=== PATIENT | female | born 1980 | race American Indian/Alaskan Native ===

== ENCOUNTER 2018-09-05 12:29 | Emergency (ER) | payer OTHER ==
[2018-09-05] MEDS ORDERED: BENADRYL PO ONE (13:39)
[2018-09-05] MEDS ORDERED: DECADRON IM ONE (13:39)
[2018-09-05] MEDS ORDERED: REGLAN PO ONE (13:39)
--- NOTE | 2018-09-05 14:22 | Emergency Department Report ---
ED Allergic Reaction HPI - General Chief complaint: Headache Stated complaint: HEADACHE/PAIN Time Seen by Provider: 09/05/18 13:09 Source: patient Mode of arrival: Ambulatory Limitations: No Limitations - History of Present Illness Initial Comments: Patient is a 38-year-old female who presents to emergency room with complaints of an allergic reaction for the last couple of days. She states she has a rash diffusely for the last couple of days. She states she noticed the hives after taking Advil head and cold for a headache. she states the rash itches. She states she has had a left frontal headache for a week and took Advil head and cold one time and began to have the rash afterwards. Patient does not report any shortness of breath, wheezing, difficulty in breathing, throat swelling. she has not taken anything else for the headache due to being afraid to have a reaction. she denies any vision changes, numbness, weakness. She states she has a past medical history of rosacea and states that her rosacea feels like it has become long goods drier and more itchy. pt states she takes singulair and Zyrtec daily for allergies but feels like it has not helped with her itchiness. LNMP August 21. Past medical history of DM and carpal tunnel. - Related Data Previous Rx's Medication Instructions Recorded Last Taken Type Prednisone [predniSONE 10 mg 10 mg PO .TAPER #1 tab.ds.pk 09/05/18 Unknown Rx (6-Day Pack, 21 Tabs)] hydrOXYzine PAMOATE [Vistaril] 25 mg PO Q6HR PRN #20 capsule 09/05/18 Unknown Rx Allergies Allergy/AdvReac Type Severity Reaction Status Date / Time No Known Allergies Allergy Unverified 09/05/18 12:30 ED Review of Systems ROS: Stated complaint: HEADACHE/PAIN Other details as noted in HPI Comment: All other systems reviewed and negative ED Past Medical Hx - Past Medical History Previous Medical History?: Yes Hx Diabetes: Yes Hx Asthma: Yes (Bronchoasthma) - Surgical History Hx Cholecystectomy: Yes Additional Surgical History: - Social History Smoking Status: Current Every Day Smoker Substance Use Type: None - Medications Home Medications: Home Medications Medication Instructions Recorded Confirmed Last Taken Type Prednisone [predniSONE 10 mg 10 mg PO .TAPER #1 tab.ds.pk 09/05/18 Unknown Rx (6-Day Pack, 21 Tabs)] hydrOXYzine PAMOATE [Vistaril] 25 mg PO Q6HR PRN #20 capsule 09/05/18 Unknown Rx ED Physical Exam - General Limitations: No Limitations General appearance: alert, in no apparent distress - Head Head exam: Present: atraumatic, normocephalic - Eye Eye exam: Present: normal appearance, PERRL, EOMI. Absent: periorbital swelling, periorbital tenderness - ENT ENT exam: Present: normal orophraynx, mucous membranes moist, other (pale boggy turbinates, no sinus TTP bilaterally ) - Respiratory Respiratory exam: Present: normal lung sounds bilaterally. Absent: respiratory distress, wheezes, rales, rhonchi, stridor, chest wall tenderness, accessory muscle use, decreased breath sounds, prolonged expiratory - Cardiovascular Cardiovascular Exam: Present: regular rate, normal rhythm, normal heart sounds. Absent: systolic murmur, diastolic murmur, rubs, gallop - Neurological Exam Neurological exam: Present: alert, oriented X3, CN II-XII intact, normal gait. Absent: motor sensory deficit - Psychiatric Psychiatric exam: Present: normal affect, normal mood - Skin Skin exam: Present: warm, dry, urticaria (chest, back, bilateral UE) ED Medical Decision Making - Medical Decision Making Patient is a 38-year-old female who presents to emergency room with complaints of an allergic reaction for the last couple of days. She states she has a rash diffusely for the last couple of days. She states she noticed the hives after taking Advil head and cold for a headache. she states the rash itches. She states she has had a left frontal headache for a week and took Advil head and cold one time and began to have the rash afterwards. Patient does not report any shortness of breath, wheezing, difficulty in breathing, throat swelling. she has not taken anything else for the headache due to being afraid to have a reaction. she denies any vision changes, numbness, weakness. She states she has a past medical history of rosacea and states that her rosacea feels like it has become long goods drier and more itchy. pt states she takes singulair and Zyrtec daily for allergies but feels like it has not helped with her itchiness. LNMP August 21. Past medical history of DM and carpal tunnel. on exam: urticaria present to the chest, back, and bilateral UE. pt given medications while in the ED for rash and COMER and symptoms improved. pt given prescriptions for vistaril and prednisone. advised to please take medication as prescribed. steroids may increase your blood sugar please keep a close eye on your blood sugar and if becomes too high then stop the steroids. follow up with primary care doctor in the next 2-3 days. return to the emergency room for any new or worsening symptoms. - Differential Diagnosis allergic rxn, contact derm, irritant derm, seasonal allergies, COMER Critical care attestation.: If time is entered above; I have spent that time in minutes in the direct care of this critically ill patient, excluding procedure time. ED Disposition Clinical Impression: Allergic reaction Qualifiers: Encounter type: initial encounter Qualified Code(s): T78.40XA - Allergy, unspecified, initial encounter Headache Qualifiers: Headache type: unspecified Headache chronicity pattern: acute headache Intractability: not intractable Qualified Code(s): R51 - Headache Disposition: TO HOME OR SELFCARE Is pt being admited?: No Does the pt Need Aspirin: No Condition: Stable Instructions: Urticaria (ED), Acute Headache (ED), Allergies (ED) Additional Instructions: please take medication as prescribed. steroids may increase your blood sugar please keep a close eye on your blood sugar and if becomes too high then stop the steroids. follow up with primary care doctor in the next 2-3 days. return to the emergency room for any new or worsening symptoms. Prescriptions: Prednisone [predniSONE 10 mg (6-Day Pack, 21 Tabs)] 10 mg PO .TAPER #1 tab.ds.pk hydrOXYzine PAMOATE [Vistaril] 25 mg PO Q6HR PRN #20 capsule PRN Reason: Itching Referrals: JOHANNA GARNER MD [Primary Care Provider] - 2-3 Days Time of Disposition: 14:38 Print Language: TURKISH
== END 2018-09-05 14:48 | disposition home or self-care (01) ==
LOC: ED 12:29
DX: T78.40XA Allergy, unspecified, initial encounter (principal); R51 Headache; E11.9 Type 2 diabetes mellitus without complications; J45.909 Unspecified asthma, uncomplicated; Z90.49 Acquired absence of other specified parts of digestive tract; F17.200 Nicotine dependence, unspecified, uncomplicated
CPT/HCPCS: 96372; 99282; J1100

== ENCOUNTER 2018-11-09 07:08 | Emergency (ER) | payer BC, OTHER ==
[2018-11-09 07:19] VITALS: BP 153/84
[2018-11-09] MEDS ORDERED: HYDROcodone/ACETAMINOPHEN 5-325 MG TAB PO STA (07:47)
--- NOTE | 2018-11-09 08:57 | Emergency Department Report ---
Upper Extremity - HPI Chief Complaint: Extremity Problem,Nontraumatic Stated Complaint: HANDS/LEGS SWELLING Time Seen by Provider: 11/09/18 07:42 Upper Extremity: Left Wrist, Right Wrist Occurred When: >5 Days Severity: moderate Symptoms: Yes Pain with Movement, Yes Numbness, No Deformity, No Limited Range of Movement, No Weakness, No Swelling, No Bruising/Ecchymosis (38-year-old morbidly obese -[place] female presents most department complaining of continuation of a long-standing issue with her wrist.), No Laceration or Abrasion Other History: She reports having issues with this for several several months and has been giving burning sensation to the fingertips cramps and pain with range of motion. She has been advised on the O was racing,) but states she does not with him because it. She feels it makes her symptoms worsen. She has not yet followed up with with orthopedic understands she is going to need surgery for management of this issue. She is to follow-up.*Also been having some a long-standing issue of bilateral lower extremity swelling to her feet and ankles is now beginning to progress to the lower leg, but not associated with calf pain. The swelling is present as bilaterally as off and on primarily when she stands for prolonged periods of time. She is not tried any management for this issue, but seeks treatment while in the emergency department today as well. ED Review of Systems ROS: Stated complaint: HANDS/LEGS SWELLING Other details as noted in HPI Comment: All other systems reviewed and negative ED Past Medical Hx - Past Medical History Hx Diabetes: Yes Hx Asthma: Yes (Bronchoasthma) - Surgical History Hx Cholecystectomy: Yes Additional Surgical History: - Social History Smoking Status: Current Every Day Smoker - Medications Home Medications: Home Medications Medication Instructions Recorded Confirmed Last Taken Type Prednisone [predniSONE 10 mg 10 mg PO .TAPER #1 tab.ds.pk 09/05/18 Unknown Rx (6-Day Pack, 21 Tabs)] hydrOXYzine PAMOATE [Vistaril] 25 mg PO Q6HR PRN #20 capsule 09/05/18 Unknown Rx predniSONE [Deltasone] 50 mg PO QDAY #5 tab 11/09/18 Unknown Rx traMADol [Ultram] 50 mg PO Q6HR PRN #20 tablet 11/09/18 Unknown Rx Upper Extremity Exam - Exam General: Vital signs noted. No distress. Alert and acting appropriately. Head and Torso: No HEENT Abnormality, No Neck Tenderness, No Chest/Lungs Abnormality, No Abdominal Tenderness, No Back Tenderness Shoulder Exam: Yes Normal Range of Motion in Shoulder, No Shoulder Tenderness, No Clavicle Tenderness, No Shoulder Deformity, No AC Joint Tenderness Arm Exam: No Arm/Humerus Tenderness, No Arm Deformity Elbow: No Elbow Tenderness, No Normal Range of Motion in Elbow, No Elbow Deformity Forearm: No Forearm Tenderness, No Forearm Deformity, No Pain with Pronation, No Pain with Supination Wrist: Yes Wrist Tenderness (pain with compression BAND. There is negative Marry l's sign and Phalen's test. Capillary refill is brisk. No snuffbox tenderness. No obvious sign. Negative Mike maneuver), Yes Normal ROM in Wrist, No Wrist Deformity, No Snuffbox Tenderness, No Pain with Axial Thumb Compression Hand: Yes Normal ROM in Digit(s), No Hand Tenderness, No Hand Deformity, No Digit Tenderness, No Digit(s) Deformity, No Tendon Dysfunction CMS Exam: Yes Normal Distal Pulses, Yes Normal Capillary Refill, Yes Normal Distal Sensation, No Broken Skin Front/Back of Body, Lg (Color): 1 - No pitting edema noted. No cords sign. Capillary refills are brisk. No Homans sign. Pulses 2+ to the dorsalis pedis and posterior tibialis. No broken skin. No venous engorgement noted. No popliteal masses. Full range of motion of the knees. Full range of motion of the ankles ED Course Vital Signs 11/09/18 07:16 Temperature 97.7 F Pulse Rate 94 H Respiratory 18 Rate Blood Pressure 153/84 [Right] O2 Sat by Pulse 97 Oximetry Critical care attestation.: If time is entered above; I have spent that time in minutes in the direct care of this critically ill patient, excluding procedure time. ED Disposition Clinical Impression: Carpal tunnel syndrome on both sides, Swelling of lower extremity Disposition: TO HOME OR SELFCARE Is pt being admited?: No Does the pt Need Aspirin: No Condition: Stable Instructions: Carpal Tunnel Syndrome (ED), Leg Edema (ED) Additional Instructions: He is recommended that she wear compression stockings when standing for prolonged period time and utilize low-impact aerobics to improve. The muscle tone and you venous return. As for your wrist. It is recommended to wear the cockup wrist braces as we discussed Prescriptions: predniSONE [Deltasone] 50 mg PO QDAY #5 tab traMADol [Ultram] 50 mg PO Q6HR PRN #20 tablet PRN Reason: Pain Referrals: SAVANNA ARANGO [Other] - 3-5 Days ANGÉLICA TERRELL MD [Staff Physician] - 3-5 Days
== END 2018-11-09 09:22 | disposition home or self-care (01) ==
LOC: ED 07:08
DX: G56.03 Carpal tunnel syndrome, bilateral upper limbs (principal); J45.909 Unspecified asthma, uncomplicated; F17.200 Nicotine dependence, unspecified, uncomplicated
CPT/HCPCS: 99282

== ENCOUNTER 2018-12-12 15:21 | Emergency (ER) | payer BC, MEDICARE ==
--- NOTE | 2018-12-12 15:39 | Emergency Department Report ---
Blank Doc - Documentation Documentation: 38-year-old female that presents with generalized body aches and bilateral upper and lower extremities swelling. This initial assessment/diagnostic orders/clinical plan/treatment(s) is/are subject to change based on patient's health status, clinical progression and re-assessment by fellow clinical providers in the ED. Further treatment and workup at subsequent clinical providers discretion. Patient/guardians urged not to elope from the ED as their condition may be serious if not clinically assessed and managed. Initial orders include: 1- Patient sent to [facility] for further evaluation and treatment 2- labs 3- UA
[2018-12-12 16:22] LABS: Basophils # (Auto) 0.2 K/mm3 (0.0-0.1); Basophils % (Auto) 2.3 % (0.0-1.8); Eosinophils # (Auto) 0.1 K/mm3 (0.0-0.4); Eosinophils % (Auto) 0.9 % (0.0-4.3); Hematocrit 35.9 % (30.3-42.9); Hemoglobin 11.8 gm/dl (10.1-14.3); Lymphocytes # (Auto) 2.5 K/mm3 (1.2-5.4); Lymphocytes % (Auto) 26.3 % (13.4-35.0); Mean Corpuscular HGB Conc 33 % (30-34); Mean Corpuscular Volume 82 fl (79-97); Monocytes # (Auto) 0.7 K/mm3 (0.0-0.8); Monocytes % (Auto) 7.6 % (0.0-7.3); Platelet Count 490 K/mm3 (140-440)
[2018-12-12 16:57] LABS: Alanine Aminotransferase 6 units/L (7-56); Albumin 3.3 g/dL (3.9-5); BUN/Creatinine Ratio 20; Blood Urea Nitrogen 12 mg/dL (7-17); Calcium 8.7 mg/dL (8.4-10.2); Hemolysis Index 20
[2018-12-12 20:04] VITALS: BP 135/84
[2018-12-12] MEDS ORDERED: KETOROLAC 30 MG/1 ML INJ IM ONE (20:12)
--- NOTE | 2018-12-12 20:13 | Emergency Department Report ---
ED General Adult HPI - General Chief complaint: Pain General Stated complaint: SWOLLEN HANDS/FEET PAIN Time Seen by Provider: 12/12/18 15:38 Source: patient, RN notes reviewed, old records reviewed Mode of arrival: Ambulatory Limitations: No Limitations - History of Present Illness Initial comments: During the entire history and physical examination, I am collar sewer and escorted by nurse Leela Shaffer This is a 38-year-old female, morbidly obese, presenting to the ER with acute on chronic bilateral wrist pain, elbow pain, shoulder pain, paracervical pain, bilateral hip pain, knee pain and ankle pain. Patient reports that she sits down at work, and is typically in front of the computer. The pain is intermittent throbbing. She feels like her wrists are swollen. She makes no complaint of headache, neck pain, chest pain, abdominal pain or shortness of breath. She reports that she is not . She reports no repetitive trauma. She reports no heavy lifting. She reports that the symptoms that she is experiencing today are similar to prior symptoms that she was evaluated for on 11/09/2018 at this hospital. Her symptoms were improved with rest and ketorolac in the emergency room. -: Gradual Location: back, left, right, upper extremity, lower extremity Severity scale (0 -10): 0 Quality: aching Consistency: intermittent Improves with: medication, rest Worsens with: movement - Related Data Allergies Allergy/AdvReac Type Severity Reaction Status Date / Time No Known Allergies Allergy Verified 12/12/18 15:38 ED Review of Systems ROS: Stated complaint: SWOLLEN HANDS/FEET PAIN Other details as noted in HPI Constitutional: denies: fever Eyes: denies: eye discharge ENT: denies: congestion Respiratory: denies: wheezing Cardiovascular: denies: syncope Gastrointestinal: denies: abdominal pain Genitourinary: denies: dysuria Musculoskeletal: back pain, joint swelling, arthralgia, myalgia Skin: denies: lesions Neurological: denies: weakness, numbness, paresthesias, confusion, abnormal gait Hematological/Lymphatic: denies: easy bleeding ED Past Medical Hx - Past Medical History Hx Diabetes: Yes Hx Asthma: Yes (Bronchoasthma) - Surgical History Hx Cholecystectomy: Yes Additional Surgical History: - Social History Smoking Status: Current Every Day Smoker ED Physical Exam - General Limitations: No Limitations, Other (during the history and physical examination, collar sewer by nurse Leela Shaffer) General appearance: alert, in no apparent distress - Head Head exam: Present: atraumatic, normocephalic - Eye Eye exam: Present: normal appearance, EOMI. Absent: nystagmus - ENT ENT exam: Present: normal exam, normal orophraynx, mucous membranes moist, normal external ear exam - Neck Neck exam: Present: normal inspection, full ROM, other (is reproducible paracervical neck pain. There is no midline spinal tenderness. There is no adenopathy. There is no carotid bruit. There is no expansile hematoma.). Absent: tenderness, meningismus - Respiratory Respiratory exam: Present: normal lung sounds bilaterally. Absent: respiratory distress, wheezes, rales, rhonchi, stridor - Cardiovascular Cardiovascular Exam: Present: regular rate, normal rhythm, normal heart sounds. Absent: bradycardia, tachycardia, irregular rhythm, systolic murmur, diastolic murmur, rubs, gallop - GI/Abdominal GI/Abdominal exam: Present: soft. Absent: distended, tenderness, guarding, rebound, rigid, pulsatile mass - Extremities Exam Extremities exam: Present: normal inspection, full ROM, other (2+ pulses noted in the bilateral upper, lower extremities. There is no long bone tenderness. Musculoskeletal compartments are soft. The pelvis is stable.). Absent: pedal edema, calf tenderness - Back Exam Back exam: Present: normal inspection, paraspinal tenderness. Absent: tenderness, CVA tenderness (R), CVA tenderness (L), vertebral tenderness - Neurological Exam Neurological exam: Present: alert, oriented X3, normal gait, other (there is no facial droop. The tongue is midline. Extraocular movements are intact bilat erally. Patient speaking in full complete sentences. Shoulder shrug is intact bilaterally. Hearing is grossly intact bilaterally. Visual acuity intact to finger counting and color perception at a close distance. 5/5 strength 4 extremities. Sensation intact to light touch in 4 extremities.). Absent: motor sensory deficit - Psychiatric Psychiatric exam: Present: normal affect, normal mood - Skin Skin exam: Present: warm, dry, intact, normal color. Absent: rash ED Course Vital Signs 12/12/18 12/12/18 12/12/18 15:34 17:16 17:19 Temperature 98.5 F Pulse Rate 107 H 101 H 99 H Respiratory 16 18 18 Rate Blood Pressure 156/97 Blood Pressure 171/100 [Left] O2 Sat by Pulse 100 98 98 Oximetry 12/12/18 12/12/18 12/12/18 17:30 17:45 18:00 Temperature Pulse Rate 98 H 98 H 94 H Respiratory 23 20 18 Rate Blood Pressure 171/100 131/88 131/88 Blood Pressure [Left] O2 Sat by Pulse 100 100 98 Oximetry 12/12/18 12/12/18 12/12/18 18:15 18:30 18:45 Temperature Pulse Rate 96 H 98 H 97 H Respiratory 13 18 13 Rate Blood Pressure 152/82 152/82 169/109 Blood Pressure [Left] O2 Sat by Pulse 98 100 100 Oximetry 12/12/18 12/12/18 12/12/18 18:50 19:00 19:15 Temperature Pulse Rate 74 95 H 96 H Respiratory 18 19 19 Rate Blood Pressure 168/100 157/84 Blood Pressure 169/109 [Left] O2 Sat by Pulse 97 98 97 Oximetry 12/12/18 19:31 Temperature Pulse Rate 95 H Respiratory 26 H Rate Blood Pressure 135/84 Blood Pressure [Left] O2 Sat by Pulse 97 Oximetry ED Medical Decision Making - Lab Data Result diagrams: 12/12/18 15:58 12/12/18 15:58 Vital Signs 12/12/18 12/12/18 12/12/18 15:34 17:16 17:19 Temperature 98.5 F Pulse Rate 107 H 101 H 99 H Respiratory 16 18 18 Rate Blood Pressure 156/97 Blood Pressure 171/100 [Left] O2 Sat by Pulse 100 98 98 Oximetry 12/12/18 12/12/18 12/12/18 17:30 17:45 18:00 Temperature Pulse Rate 98 H 98 H 94 H Respiratory 23 20 18 Rate Blood Pressure 171/100 131/88 131/88 Blood Pressure [Left] O2 Sat by Pulse 100 100 98 Oximetry 12/12/18 12/12/18 12/12/18 18:15 18:30 18:45 Temperature Pulse Rate 96 H 98 H 97 H Respiratory 13 18 13 Rate Blood Pressure 152/82 152/82 169/109 Blood Pressure [Left] O2 Sat by Pulse 98 100 100 Oximetry 12/12/18 12/12/18 12/12/18 18:50 19:00 19:15 Temperature Pulse Rate 74 95 H 96 H Respiratory 18 19 19 Rate Blood Pressure 168/100 157/84 Blood Pressure 169/109 [Left] O2 Sat by Pulse 97 98 97 Oximetry 12/12/18 19:31 Temperature Pulse Rate 95 H Respiratory 26 H Rate Blood Pressure 135/84 Blood Pressure [Left] O2 Sat by Pulse 97 Oximetry Lab Results 12/12/18 12/12/18 12/12/18 Range/Units 15:58 15:58 15:58 WBC 9.5 (4.5-11.0) K/mm3 RBC 4.40 (3.65-5.03) M/mm3 Hgb 11.8 (10.1-14.3) gm/dl Hct 35.9 (30.3-42.9) % MCV 82 (79-97) fl MCH 27 L (28-32) pg MCHC 33 (30-34) % RDW 16.0 H (13.2-15.2) % Plt Count 490 H (140-440) K/mm3 Lymph % (Auto) 26.3 (13.4-35.0) % [place] % (Auto) 7.6 H (0.0-7.3) % Eos % (Auto) 0.9 (0.0-4.3) % Baso % (Auto) 2.3 H (0.0-1.8) % Lymph # 2.5 (1.2-5.4) K/mm3 [place] # 0.7 (0.0-0.8) K/mm3 Eos # 0.1 (0.0-0.4) K/mm3 Baso # 0.2 H (0.0-0.1) K/mm3 Seg Neutrophils % 62.9 (40.0-70.0) % Seg Neutrophils # 6.0 (1.8-7.7) K/mm3 Sodium 138 (137-145) mmol/L Potassium 3.8 (3.6-5.0) mmol/L Chloride 101.5 (98-107) mmol/L Carbon Dioxide 23 (22-30) mmol/L Anion Gap 17 mmol/L BUN 12 (7-17) mg/dL Creatinine 0.6 L (0.7-1.2) mg/dL Estimated GFR > 60 ml/min BUN/Creatinine Ratio 20 % Glucose 133 H (65-100) mg/dL Calcium 8.7 (8.4-10.2) mg/dL Total Bilirubin < 0.20 (0.1-1.2) mg/dL AST 11 (5-40) units/L ALT 6 L (7-56) units/L Alkaline Phosphatase 91 (35-129) units/L Troponin T (0.00-0.029) ng/mL NT-Pro-B Natriuret Pep (0-450) pg/mL Total Protein 7.7 (6.3-8.2) g/dL Albumin 3.3 L (3.9-5) g/dL Albumin/Globulin Ratio 0.8 % HCG, Qual Negative (Negative) 12/12/18 Range/Units 15:58 WBC (4.5-11.0) K/mm3 RBC (3.65-5.03) M/mm3 Hgb (10.1-14.3) gm/dl Hct (30.3-42.9) % MCV (79-97) fl MCH (28-32) pg MCHC (30-34) % RDW (13.2-15.2) % Plt Count (140-440) K/mm3 Lymph % (Auto) (13.4-35.0) % [place] % (Auto) (0.0-7.3) % Eos % (Auto) (0.0-4.3) % Baso % (Auto) (0.0-1.8) % Lymph # (1.2-5.4) K/mm3 [place] # (0.0-0.8) K/mm3 Eos # (0.0-0.4) K/mm3 Baso # (0.0-0.1) K/mm3 Seg Neutrophils % (40.0-70.0) % Seg Neutrophils # (1.8-7.7) K/mm3 Sodium (137-145) mmol/L Potassium (3.6-5.0) mmol/L Chloride (98-107) mmol/L Carbon Dioxide (22-30) mmol/L Anion Gap mmol/L BUN (7-17) mg/dL Creatinine (0.7-1.2) mg/dL Estimated GFR ml/min BUN/Creatinine Ratio % Glucose (65-100) mg/dL Calcium (8.4-10.2) mg/dL Total Bilirubin (0.1-1.2) mg/dL AST (5-40) units/L ALT (7-56) units/L Alkaline Phosphatase (35-129) units/L Troponin T < 0.010 (0.00-0.029) ng/mL NT-Pro-B Natriuret Pep 55.98 (0-450) pg/mL Total Protein (6.3-8.2) g/dL Albumin (3.9-5) g/dL Albumin/Globulin Ratio % HCG, Qual (Negative) - EKG Data -: EKG Interpreted by Me EKG shows normal: sinus rhythm Rate: normal - EKG Data 12/12/18 20:29 The EKG shows a sinus tachycardia, borderline leftward axis deviation, borderline left anterior fascicular block, QTC is 471 ms, the EKG is abnormal, there is no prior for comparison, the EKG is not consistent with ST elevation myocardial infarction. - Medical Decision Making Torrential diagnosis, including not limited to: Polyarthritis secondary to obesity, fibromyalgia Assessment and plan: 38-year-old female, morbidly obese, with multiple arthralgias. She is afebrile with reassuring vital signs, tachycardia has reso lved. She is neurovascularly intact, walks with a steady gait, and her physical exam is not consistent with compartment syndrome, cellulitis, fracture, dislocation. The patient does not appear to have an emergent medical condition at this time. Screening laboratory studies were sent prior to my personal evaluation, including a troponin. However, based off of the history and physical, do not have a high suspicion for acute coronary syndrome. Patient is counseled to diet, lose weight, participate in physical activities as tolerated. She can follow-up with an outpatient primary care doctor for further evaluation, provide a physical therapy, expectant management, and/or possible rheumatologic consultation if conservative measures do not improve her symptoms. Critical care attestation.: If time is entered above; I have spent that time in minutes in the direct care of this critically ill patient, excluding procedure time. ED Disposition Clinical Impression: Arthralgia, Obesity Disposition: DC-01 TO HOME OR SELFCARE Is pt being admited?: No Does the pt Need Aspirin: No Condition: Good Additional Instructions: Recommend the patient participate in physical activities as tolerated, exercise as tolerated, modify diet to avoid consumption of simple carbohydrates, sugar, and processed foods. Recommend consuming more fiber, lean meat, vegetables, recommend weight loss as tolerated. Follow-up with the primary care doctor within the next month. Patient may benefit from physical therapy, weight loss, physical activities as tolerated; would defer to primary care doctor to further manage outpatient physical therapy. For pain, the patient may take ibuprofen, 600 mg with food, every 6 hours, as needed for pain. This can be alternated with Tylenol, 650 mg, every 4-6 hours, as needed for pain; maximum daily dose 2 g per 24 hours. Patient's symptoms will likely take months to improve, please follow-up with the primary care doctor within the next month. Return to emergency room right away with new, worsened, different symptoms, or symptoms not present on the initial emergency room evaluation. Referrals: [facility] [Provider Group] - 3-5 Days [facility] [Provider Group] - 3-5 Days Forms: Work/School Release Form(ED)
[2018-12-12 20:30] LABS: Bacteria,Urine 1+ /HPF (Negative); Bilirubin,Urine NEG (Negative); Blood,Urine NEG (Negative); Color,Urine Yellow (Yellow); Mucus,Urine 2+ /HPF; Protein,Urine <15 mg/dL mg/dL (Negative); Urobilinogen,Urine < 2.0 mg/dL (<2.0)
== END 2018-12-12 21:01 | disposition home or self-care (01) ==
LOC: ED 15:21
DX: M79.18 Myalgia, other site (principal); E66.9 Obesity, unspecified; E11.9 Type 2 diabetes mellitus without complications; J45.909 Unspecified asthma, uncomplicated; F17.200 Nicotine dependence, unspecified, uncomplicated
CPT/HCPCS: 36415; 80053; 81001; 83880; 84484; 84703; 85025; 93005; 93010; 96372; 99283; J1885

== ENCOUNTER 2018-12-22 16:06 | Emergency (ER) | payer BC, MEDICARE ==
[2018-12-22 17:36] VITALS: BP 131/79
--- NOTE | 2018-12-22 17:37 | Event Note ---
ED Screening Note Date of service: 12/22/18 Time: 17:37 ED Screening Note: Pt complains of generalized pain and swelling x 2 months seen here for the same 12/12/18 This initial assessment/diagnostic orders/clinical plan/treatment(s) is/are subject to change based on patients health status, clinical progression and re- assessment by fellow clinical providers in the ED. Further treatment and workup at subsequent clinical providers discretion. Patient/guardian urged not to elope from the ED as their condition may be serious if not clinically assessed and managed. Initial orders include:
== END 2018-12-22 19:15 | disposition left against medical advice (07) ==
LOC: ED 16:06
DX: R22.30 Localized swelling, mass and lump, unspecified upper limb (principal); R22.40 Localized swelling, mass and lump, unspecified lower limb; Z53.21 Procedure and treatment not carried out due to patient leaving prior to being seen by health care provider

== ENCOUNTER 2018-12-26 09:41 | Emergency (ER) | payer BC, OTHER ==
[2018-12-26] MEDS ORDERED: predniSONE 20 MG TAB PO ONE (10:43)
--- NOTE | 2018-12-26 10:43 | Emergency Department Report ---
ED General Adult HPI - General Chief complaint: Pain General Stated complaint: BODY PAIN/SWELLING Time Seen by Provider: 12/26/18 10:14 Source: patient Mode of arrival: Ambulatory Limitations: No Limitations - History of Present Illness Initial comments: Mrs. Yoder is a 38 yo female with hx of severe obesith who has had diffuse joint pain and leg swelling for 2 months. Dx'd by ED provider with lymphedema NOT lymphoma. Referred to orthopedic surgeon. Has severe bilateral ankle knee back and neck pain. Stands 12 hours continuously on her feet. has appt with orthopedic Dr. Gomes no PCP has had difficulty obtained outside care due to insurance conflicts Ibuprofen and Tylenol did not provided any pain relief -: Gradual, month(s) (2) Location: neck, back, left, right, upper extremity, lower extremity Quality: aching Consistency: constant Improves with: none Worsens with: immobilization, movement Associated Symptoms: denies other symptoms - Related Data Previous Rx's Medication Instructions Recorded Last Taken Type Prednisone [predniSONE 10 mg 10 mg PO .TAPER #1 tab.ds.pk 12/26/18 Unknown Rx (6-Day Pack, 21 Tabs)] Allergies Allergy/AdvReac Type Severity Reaction Status Date / Time No Known Allergies Allergy Verified 12/22/18 16:16 ED Review of Systems ROS: Stated complaint: BODY PAIN/SWELLING Other details as noted in HPI Comment: All other systems reviewed and negative Constitutional: denies: fever, malaise Respiratory: denies: cough Cardiovascular: denies: chest pain ED Past Medical Hx - Past Medical History Previous Medical History?: Yes Hx Diabetes: Yes Hx Asthma: Yes (Bronchoasthma) - Surgical History Past Surgical History?: Yes Hx Cholecystectomy: Yes Additional Surgical History: - Social History Smoking Status: Current Every Day Smoker Substance Use Type: None - Medications Home Medications: Home Medications Medication Instructions Recorded Confirmed Last Taken Type Prednisone [predniSONE 10 mg 10 mg PO .TAPER #1 tab.ds.pk 12/26/18 Unknown Rx (6-Day Pack, 21 Tabs)] ED Physical Exam - General Limitations: No Limitations General appearance: alert, in no apparent distress - Head Head exam: Present: atraumatic, normocephalic - Eye Eye exam: Present: normal appearance - ENT ENT exam: Present: mucous membranes moist - Neck Neck exam: Present: normal inspection, full ROM - Respiratory Respiratory exam: Present: normal lung sounds bilaterally. Absent: respiratory distress, wheezes, rales, rhonchi - Cardiovascular Cardiovascular Exam: Present: regular rate, normal rhythm, normal heart sounds. Absent: systolic murmur, diastolic murmur, rubs, gallop - GI/Abdominal GI/Abdominal exam: Present: soft, normal bowel sounds. Absent: distended, tenderness, guarding, rebound - Extremities Exam Extremities exam: Present: normal inspection - Back Exam Back exam: Present: normal inspection, full ROM. Absent: tenderness, CVA tenderness (R), CVA tenderness (L) - Neurological Exam Neurological exam: Present: alert, oriented X3 - Psychiatric Psychiatric exam: Present: normal affect, normal mood - Skin Skin exam: Present: warm, dry, intact, normal color. Absent: rash ED Course Vital Signs 12/26/18 09:46 Temperature 98.4 F Pulse Rate 94 H Respiratory 16 Rate Blood Pressure 162/95 O2 Sat by Pulse 97 Oximetry ED Medical Decision Making - Medical Decision Making Ms. Yoder presents with diffuse pain in joints neck and back. Concern for connective tissue dz such as SLE or RA. Concern for severe inflammation due to dietary indiscretion. She has a severe weight burden on her joints with BMI 60. 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 She will need primary care and further outpatient medical management in addition to orthopedic treatment. rx: prednisone taper Critical care attestation.: If time is entered above; I have spent that time in minutes in the direct care of this critically ill patient, excluding procedure time. ED Disposition Clinical Impression: Arthralgia Disposition: DC-01 TO HOME OR SELFCARE Is pt being admited?: No Does the pt Need Aspirin: No Condition: Stable Additional Instructions: You will need to see a primary physician for definitive care. Prescriptions: Prednisone [predniSONE 10 mg (6-Day Pack, 21 Tabs)] 10 mg PO .TAPER #1 tab.ds.pk Referrals: PARIS MILLER DO [Staff Physician] - 3-5 Days Forms: Work/School Release Form(ED)
[2018-12-26 10:56] VITALS: BP 160/90
== END 2018-12-26 10:54 | disposition home or self-care (01) ==
LOC: ED 09:41
DX: M25.572 Pain in left ankle and joints of left foot (principal); M25.571 Pain in right ankle and joints of right foot; M54.2 Cervicalgia; J45.909 Unspecified asthma, uncomplicated; E11.9 Type 2 diabetes mellitus without complications; F17.200 Nicotine dependence, unspecified, uncomplicated; Z90.49 Acquired absence of other specified parts of digestive tract; Z79.899 Other long term (current) drug therapy
CPT/HCPCS: 99282; J7512

== ENCOUNTER 2019-03-31 18:05 | Emergency (ER) | payer BC, OTHER ==
--- NOTE | 2019-03-31 19:41 | Emergency Department Report ---
{null, Blank Doc - Documentation Documentation: 38-year-old female that presents with left knee pain. This initial assessment/diagnostic orders/clinical plan/treatment(s) is/are subject to change based on patient's health status, clinical progression and re- assessment by fellow clinical providers in the ED. Further treatment and workup at subsequent clinical providers discretion. Patient/guardians urged not to elope from the ED as their condition may be serious if not clinically assessed and managed. Initial orders include: 1- Patient sent to [facility] for further evaluation and treatment 2- xrays }
--- NOTE | 2019-03-31 20:38 | XRay Report ---
{null, LEFT KNEE 3 VIEW(S) INDICATION / CLINICAL INFORMATION: MAIN: knee pain; TWISTED KNEE WHEN GETTING UP TODAY COMPARISON: None available. FINDINGS: BONES / JOINT(S): No acute fracture or subluxation. No significant arthritis. Small suprapatellar latoya nt effusion. SOFT TISSUES: No significant abnormality. ADDITIONAL FINDINGS: None. Signer Name: Patricia Fontenot MD Signed: 03/31/2019 8:34 PM Workstation Name: [id number] }
[2019-03-31] MEDS ORDERED: KETOROLAC 30 MG/1 ML INJ IM ONE (22:05)
[2019-03-31] MEDS ORDERED: predniSONE 20 MG TAB PO ONE (22:05)
--- NOTE | 2019-03-31 22:07 | Emergency Department Report ---
{null, Chief Complaint: Extremity Problem,Nontraumatic Stated Complaint: KNEE PAIN Time Seen by Provider: 03/31/19 19:40 - HPI History of Present Illness: This is a 38-year-old female with a history of left knee pain who presents the ED for acute knee pain status post twisting the knee. Patient states that earlier today she got up from a sitting position and felt her knee gave way. She denies any other injuries, trauma to the knee. Patient states she does have an orthopedic doctor she usually follows up with. Patient states that she presents here for the pain due to today's twisting of the knee. - ROS Review of Systems: As noted in HPI - Exam Vital Signs: Vital Signs 03/31/19 03/31/19 19:15 19:41 Temperature 97.9 F 98 F Pulse Rate 84 85 Respiratory 18 18 Rate Blood Pressure 150/99 150/99 O2 Sat by Pulse 99 100 Oximetry Physical Exam: GENERAL: Alert and oriented x3, no apparent distress, Normal Gait, atraumatic. HEAD: Head is normocephalic and a-traumatic. EXTREMITIES/MUSCULOSKELETAL: No cyanosis, clubbing, rash, lesions or edema. Full ROM bilaterally. Pedal pulses 2+ bilaterally. LE 5+ strength bilaterally, tenderness to palpation of the left anterior knee. Patient able to extend the knee but with some pain NEUROLOGIC: The patient is cooperative with no focal neurologic deficits. Normal sensation in bilateral upper and lower extremities, No loss of sensation, SKIN: Warm and dry, No lesions, No ulceration or induration present. MSE screening note: Focused history and physical exam performed. Due to findings the following was ordered: ED Medical Decision Making - Radiology Data Radiology results: report reviewed, image reviewed Fluoro Time In Minutes: LEFT KNEE 3 VIEW(S) INDICATION / CLINICAL INFORMATION: MAIN: knee pain; TWISTED KNEE WHEN GETTING UP TODAY COMPARISON: None available. FINDINGS: BONES / JOINT(S): No acute fracture or subluxation. No significant arthritis. Small suprapatellar joint effusion. SOFT TISSUES: No significant abnormality. ADDITIONAL FINDINGS: None. Signer Name: Patricia Fontenot MD Signed: 03/31/2019 8:34 PM Workstation Name: [id number] Transcribed By: DT Dictated By: Milton Fontenot MD Electronically Authenticated By: Milton Fontenot MD Signed Date/Time: 03/31/192033 ED Disposition for MSE Clinical Impression: Knee pain Disposition: Z MED SCREENING EXAM-LEFT Is pt being admited?: No Does the pt Need Aspirin: No Condition: Stable Instructions: Arthralgia (ED) Additional Instructions: Make sure to follow up with the primary care physician as discussed. Take all your medications as you've been prescribed. If you have any worsening symptoms or develop new symptoms please return to ED immediately. Prescriptions: HYDROcodone/APAP 5-325 [[place] 5/325] 1 each PO Q6HR PRN #10 tablet PRN Reason: Pain Referrals: LIZZ CALVILLO MD [Staff Physician] - 3-5 Days [facility] [Provider Group] - 3-5 Days Forms: Work/School Release Form(ED) Time of Disposition: 22:31 }
[2019-03-31 23:32] VITALS: BP 142/81
== END 2019-03-31 23:30 | disposition left against medical advice (07) ==
LOC: ED 18:05
DX: M25.562 Pain in left knee (principal); X50.0XXA Overexertion from strenuous movement or load, initial encounter; Y93.89 Activity, other specified; Y92.89 Other specified places as the place of occurrence of the external cause; Y99.8 Other external cause status
CPT/HCPCS: 73562; 96372; 99283; J1885; J7512

== ENCOUNTER 2019-04-25 14:50 | Emergency (ER) | payer BC ==
--- NOTE | 2019-04-25 17:03 | Event Note ---
ED Screening Note ED Screening Note: 39 y/o female presents c/o of progressively worsening swelling to hands and feet. No dyspnea This initial assessment/diagnostic orders/clinical plan/treatment(s) is/are subject to change based on patients health status, clinical progression and re- assessment by fellow clinical providers in the ED. Further treatment and workup at subsequent clinical providers discretion. Patient/guardian urged not to elope from the ED as their condition may be serious if not clinically assessed and managed. Initial orders include:
[2019-04-25 17:44] VITALS: BP 136/82
[2019-04-25] MEDS ORDERED: methylPREDNISolone Sod Succinate 125 MG/2 ML INJ IM ONE (18:43)
[2019-04-25] MEDS ORDERED: KETOROLAC 60 MG/2 ML INJ IM ONE (18:43)
--- NOTE | 2019-04-25 18:48 | Emergency Department Report ---
ED General Adult HPI - General Chief complaint: Extremity Problem,Nontraumatic Stated complaint: EXTREMITY SWELLING Time Seen by Provider: 04/25/19 17:01 Source: patient Mode of arrival: Ambulatory Limitations: No Limitations - History of Present Illness Initial comments: The patient presents to the emergency department the chief complaint of swelling of the joints of her hands, ankles, knees. Patient states this has periodically happened in the past and has seen orthopedic surgery for it and her primary care physician. She denies a history of rheumatoid arthritis, lupus, sarcoidosis. Patient states his current swelling has been going on for the last 3 days. Patient states any type of movement makes the pain worse. She describes the pain as a tightness. -: Sudden Location: upper extremity, lower extremity Radiation: non-radiation Severity scale (0 -10): 3 Quality: other (tightness) Consistency: constant Improves with: rest Worsens with: movement Associated Symptoms: denies other symptoms Treatments Prior to Arrival: none - Related Data Previous Rx's Medication Instructions Recorded Last Taken Type Prednisone [predniSONE 10 mg 10 mg PO .TAPER #1 tab.ds.pk 12/26/18 Unknown Rx (6-Day Pack, 21 Tabs)] HYDROcodone/APAP 5-325 [[place] 1 each PO Q6HR PRN #10 tablet 03/31/19 Unknown Rx 5/325] predniSONE [Deltasone] 20 mg PO DAILY #15 tablet 04/25/19 Unknown Rx traMADoL [Ultram] 50 mg PO Q6HR PRN #24 tablet 04/25/19 Unknown Rx Allergies Allergy/AdvReac Type Severity Reaction Status Date / Time No Known Allergies Allergy Verified 12/22/18 16:16 ED Review of Systems ROS: Stated complaint: EXTREMITY SWELLING Other details as noted in HPI Constitutional: denies: chills, fever Eyes: denies: eye pain, eye discharge, vision change ENT: denies: ear pain, throat pain Respiratory: denies: cough, shortness of breath, wheezing Cardiovascular: denies: chest pain, palpitations Endocrine: no symptoms reported Gastrointestinal: denies: abdominal pain, nausea, diarrhea Genitourinary: denies: urgency, dysuria, discharge Musculoskeletal: joint swelling. denies: back pain, arthralgia Skin: denies: rash, lesions Neurological: denies: headache, weakness, paresthesias Psychiatric: denies: anxiety, depression Hematological/Lymphatic: denies: easy bleeding, easy bruising ED Past Medical Hx - Past Medical History Previous Medical History?: Yes Hx Diabetes: Yes Hx Asthma: Yes (Bronchoasthma) - Surgical History Past Surgical History?: Yes Hx Cholecystectomy: Yes Additional Surgical History: - Social History Smoking Status: Current Every Day Smoker Substance Use Type: None - Medications Home Medications: Home Medications Medication Instructions Recorded Confirmed Last Taken Type Prednisone [predniSONE 10 mg 10 mg PO .TAPER #1 tab.ds.pk 12/26/18 Unknown Rx (6-Day Pack, 21 Tabs)] HYDROcodone/APAP 5-325 [[place] 1 each PO Q6HR PRN #10 tablet 03/31/19 Unknown Rx 5/325] predniSONE [Deltasone] 20 mg PO DAILY #15 tablet 04/25/19 Unknown Rx traMADoL [Ultram] 50 mg PO Q6HR PRN #24 tablet 04/25/19 Unknown Rx ED Physical Exam - General Limitations: No Limitations General appearance: alert, in no apparent distress - Head Head exam: Present: atraumatic, normocephalic - Eye Eye exam: Present: normal appearance, PERRL, EOMI - ENT ENT exam: Present: mucous membranes moist - Neck Neck exam: Present: normal inspection - Respiratory Respiratory exam: Present: normal lung sounds bilaterally. Absent: respiratory distress - Cardiovascular Cardiovascular Exam: Present: regular rate, normal rhythm. Absent: systolic murmur, diastolic murmur, rubs, gallop - GI/Abdominal GI/Abdominal exam: Present: soft, normal bowel sounds - Extremities Exam Extremities exam: Present: other (Swelling is noted at the patient's DIPs and PIPs of her hands, swelling to the ankles, swelling to the knees) - Back Exam Back exam: Present: normal inspection - Neurological Exam Neurological exam: Present: alert, oriented X3, CN II-XII intact. Absent: motor sensory deficit - Psychiatric Psychiatric exam: Present: normal affect, normal mood - Skin Skin exam: Present: warm, dry, intact, normal color. Absent: rash ED Course Vital Signs 04/25/19 04/25/19 04/25/19 14:57 16:59 17:42 Temperature 97.9 F 97.9 F 98.2 F Pulse Rate 97 H 86 Respiratory 18 18 18 Rate Blood Pressure 135/93 135/93 Blood Pressure 136/82 [Right] O2 Sat by Pulse 98 100 Oximetry 04/25/19 19:05 Temperature Pulse Rate Respiratory 18 Rate Blood Pressure Blood Pressure [Right] O2 Sat by Pulse Oximetry ED Medical Decision Making - Lab Data Result diagrams: 04/25/19 19:05 04/25/19 19:05 Lab Results 04/25/19 04/25/19 04/25/19 Range/Units 19:05 19:05 19:05 WBC 9.5 (4.5-11.0) K/mm3 RBC 4.54 (3.65-5.03) M/mm3 Hgb 11.7 (10.1-14.3) gm/dl Hct 36.7 (30.3-42.9) % MCV 81 (79-97) fl MCH 26 L (28-32) pg MCHC 32 (30-34) % RDW 17.2 H (13.2-15.2) % Plt Count 582 H (140-440) K/mm3 Lymph % (Auto) 30.5 (13.4-35.0) % [place] % (Auto) 7.6 H (0.0-7.3) % Eos % (Auto) 1.9 (0.0-4.3) % Baso % (Auto) 1.0 (0.0-1.8) % Lymph # 2.9 (1.2-5.4) K/mm3 [place] # 0.7 (0.0-0.8) K/mm3 Eos # 0.2 (0.0-0.4) K/mm3 Baso # 0.1 (0.0-0.1) K/mm3 Seg Neutrophils % 59.0 (40.0-70.0) % Seg Neutrophils # 5.6 (1.8-7.7) K/mm3 ESR 71 (0-20) mm/Hr Sodium 136 L (137-145) mmol/L Potassium 4.2 (3.6-5.0) mmol/L Chloride 99.9 (98-107) mmol/L Carbon Dioxide 22 (22-30) mmol/L Anion Gap 18 mmol/L BUN 15 (7-17) mg/dL Creatinine 0.6 L (0.7-1.2) mg/dL Estimated GFR > 60 ml/min BUN/Creatinine Ratio 25 % Glucose 143 H (65-100) mg/dL Calcium 9.0 (8.4-10.2) mg/dL Total Bilirubin 0.20 (0.1-1.2) mg/dL AST 12 (5-40) units/L ALT 5 L (7-56) units/L Alkaline Phosphatase 90 (35-129) units/L C-Reactive Protein 6.20 H (0.00-1.30) mg/dL NT-Pro-B Natriuret Pep (0-450) pg/mL Total Protein 8.2 (6.3-8.2) g/dL Albumin 3.4 L (3.9-5) g/dL Albumin/Globulin Ratio 0.7 % Rheumatoid Factor 16 H (0-13) IU/ml 04/24/ Range/Units 19:05 WBC (4.5-11.0) K/mm3 RBC (3.65-5.03) M/mm3 Hgb (10.1-14.3) gm/dl Hct (30.3-42.9) % MCV (79-97) fl MCH (28-32) pg MCHC (30-34) % RDW (13.2-15.2) % Plt Count (140-440) K/mm3 Lymph % (Auto) (13.4-35.0) % [place] % (Auto) (0.0-7.3) % Eos % (Auto) (0.0-4.3) % Baso % (Auto) (0.0-1.8) % Lymph # (1.2-5.4) K/mm3 [place] # (0.0-0.8) K/mm3 Eos # (0.0-0.4) K/mm3 Baso # (0.0-0.1) K/mm3 Seg Neutrophils % (40.0-70.0) % Seg Neutrophils # (1.8-7.7) K/mm3 ESR (0-20) mm/Hr Sodium (137-145) mmol/L Potassium (3.6-5.0) mmol/L Chloride (98-107) mmol/L Carbon Dioxide (22-30) mmol/L Anion Gap mmol/L BUN (7-17) mg/dL Creatinine (0.7-1.2) mg/dL Estimated GFR ml/min BUN/Creatinine Ratio % Glucose (65-100) mg/dL Calcium (8.4-10.2) mg/dL Total Bilirubin (0.1-1.2) mg/dL AST (5-40) units/L ALT (7-56) units/L Alkaline Phosphatase (35-129) units/L C-Reactive Protein (0.00-1.30) mg/dL NT-Pro-B Natriuret Pep 71.60 (0-450) pg/mL Total Protein (6.3-8.2) g/dL Albumin (3.9-5) g/dL Albumin/Globulin Ratio % Rheumatoid Factor (0-13) IU/ml Critical care attestation.: If time is entered above; I have spent that time in minutes in the direct care of this critically ill patient, excluding procedure time. ED Disposition Clinical Impression: Joint swelling Disposition: DC-01 TO HOME OR SELFCARE Is pt being admited?: No Does the pt Need Aspirin: No Condition: Stable Additional Instructions: return if worse Prescriptions: predniSONE [Deltasone] 20 mg PO DAILY #15 tablet traMADoL [Ultram] 50 mg PO Q6HR PRN #24 tablet PRN Reason: Pain Referrals: ELIZABETH MARCUS MD [Referring] - 3-5 Days Time of Disposition: 20:05
[2019-04-25 19:24] LABS: Basophils # (Auto) 0.1 K/mm3 (0.0-0.1); Eosinophils # (Auto) 0.2 K/mm3 (0.0-0.4); Eosinophils % (Auto) 1.9 % (0.0-4.3); Hematocrit 36.7 % (30.3-42.9); Hemoglobin 11.7 gm/dl (10.1-14.3); Lymphocytes # (Auto) 2.9 K/mm3 (1.2-5.4); Lymphocytes % (Auto) 30.5 % (13.4-35.0); Mean Corpuscular HGB Conc 32 % (30-34); Mean Corpuscular Volume 81 fl (79-97); Monocytes # (Auto) 0.7 K/mm3 (0.0-0.8); Monocytes % (Auto) 7.6 % (0.0-7.3); Platelet Count 582 K/mm3 (140-440); Red Blood Count 4.54 M/mm3 (3.65-5.03); Red Cell Distribution Width 17.2 % (13.2-15.2)
[2019-04-25 19:33] LABS: Alanine Aminotransferase 5 units/L (7-56); Albumin 3.4 g/dL (3.9-5); BUN/Creatinine Ratio 25; Blood Urea Nitrogen 15 mg/dL (7-17); Hemolysis Index 17
[2019-04-25 19:43] LABS: Erythrocyte Sedimentation Rate 71 mm/Hr (0-20)
== END 2019-04-25 21:01 | disposition home or self-care (01) ==
LOC: ED 14:50
DX: M25.442 Effusion, left hand (principal); M25.441 Effusion, right hand; M25.472 Effusion, left ankle; M25.471 Effusion, right ankle; M25.462 Effusion, left knee; M25.461 Effusion, right knee; E11.9 Type 2 diabetes mellitus without complications; J45.909 Unspecified asthma, uncomplicated; F17.200 Nicotine dependence, unspecified, uncomplicated; Z98.890 Other specified postprocedural states; Z90.49 Acquired absence of other specified parts of digestive tract; Z79.899 Other long term (current) drug therapy
CPT/HCPCS: 36415; 80053; 83880; 85025; 85652; 86038; 86140; 86431; 96372; 99283; J1885; J2930

== ENCOUNTER 2019-07-08 01:40 | Emergency (ER) | payer BC ==
[2019-07-08] MEDS ORDERED: ONDANSETRON 4 MG/2 ML INJ IM ONE (03:29)
[2019-07-08] MEDS ORDERED: fentaNYL 100 MCG/2 ML INJ IM ONE (03:29)
[2019-07-08] MEDS ORDERED: KETOROLAC 60 MG/2 ML INJ IM ONE (03:30)
--- NOTE | 2019-07-08 03:36 | Emergency Department Report ---
HPI - General Chief Complaint: Pain General PUI?: No Time Seen by Provider: 07/08/19 03:22 - HPI HPI: Room 6 The patient is a 39-year-old female present with a chief complaint of joint pain and swelling. The patient states she has had pain in every joint in her body since October 2018. The patient states her primary physician has been working her up and she ruled out for lupus however she was told her "numbers were eleva ten" for her rheumatoid arthritis work-up and subsequently has an appointment to follow-up with a specialist. The patient states she came in today because the pain was too much to bear making it difficult for her to walk. Patient denies any recent trauma. Patient denies any history of fever. Patient gives her pain a score of 8/10 ED Past Medical Hx - Past Medical History Previous Medical History?: Yes Hx Diabetes: Yes Hx Asthma: Yes - Surgical History Past Surgical History?: Yes Hx Cholecystectomy: Yes Additional Surgical History: x 2 - Family History Family history: no significant - Social History Smoking Status: Current Every Day Smoker (1/7 pack/day) Substance Use Type: None (Denies illicit drug use), Alcohol (Occasional) - Medications Home Medications: Home Medications Medication Instructions Recorded Confirmed Last Taken Type Prednisone [predniSONE 10 mg 10 mg PO .TAPER #1 tab.ds.pk 12/26/18 Unknown Rx (6-Day Pack, 21 Tabs)] HYDROcodone/APAP 5-325 [[place] 1 each PO Q6HR PRN #10 tablet 03/31/19 Unknown Rx 5/325] predniSONE [Deltasone] 20 mg PO DAILY #15 tablet 04/25/19 Unknown Rx traMADoL [Ultram] 50 mg PO Q6HR PRN #24 tablet 04/25/19 Unknown Rx HYDROcodone/APAP 5-325 [[place] 1 - 2 each PO Q6HR PRN #14 tablet 07/08/19 Unknown Rx 5/325] Ibuprofen [Motrin 800 MG tab] 800 mg PO Q8HR PRN #20 tablet 07/08/19 Unknown Rx ED Review of Systems ROS: Stated complaint: BODY SWOLLEN ALL OVER HARD TO WALK Other details as noted in HPI Constitutional: denies: fever Eyes: denies: eye pain ENT: denies: throat pain Respiratory: no symptoms reported Musculoskeletal: arthralgia Physical Exam - Physical Exam Vital Signs: Vital Signs 07/08/19 03:04 Respiratory 18 Rate Physical Exam: GENERAL: The patient is well-developed well-nourished female sitting on stretcher not appearing to be in acute distress. [] HEENT: Normocephalic. Atraumatic. Extraocular motions are intact. Patient has moist mucous membranes. NECK: Supple. Trachea midline CHEST/LUNGS: Clear to auscultation. There is no respiratory distress noted. HEART/CARDIOVASCULAR: Regular. There is tachycardia. There is no gallop rub or murmur. ABDOMEN: Abdomen is soft, nontender. Patient has normal bowel sounds. There is no abdominal distention. SKIN: There is no rash. There is no edema. There is no diaphoresis. NEURO: The patient is awake, alert, and oriented. The patient is cooperative. The patient has normal speech and gait. MUSCULOSKELETAL: There is no evidence of acute injury. ED Course Vital Signs 07/08/19 03:04 Respiratory 18 Rate ED Medical Decision Making - Lab Data Result diagrams: 07/08/19 03:54 07/08/19 03:54 Laboratory Tests 07/08/19 07/08/19 07/08/19 03:54 03:54 03:54 WBC 8.2 RBC 3.98 Hgb 10.9 Hct 32.8 MCV 83 MCH 27 L MCHC 33 RDW 17.3 H Plt Count 604 H Lymph % (Auto) 25.2 [place] % (Auto) 9.7 H Eos % (Auto) 1.9 Baso % (Auto) 0.9 Lymph # 2.1 [place] # 0.8 Eos # 0.2 Baso # 0.1 Seg Neutrophils % 62.3 Seg Neutrophils # 5.1 Sodium 139 Potassium 4.1 Chloride 99.2 Carbon Dioxide 24 Anion Gap 20 BUN 15 Creatinine 0.7 Estimated GFR > 60 BUN/Creatinine Ratio 21 Glucose 127 H Calcium 8.8 HCG, Qual Negative - Differential Diagnosis Polyarthralgia, rheumatoid arthritis Critical care attestation.: If time is entered above; I have spent that time in minutes in the direct care of this critically ill patient, excluding procedure time. ED Disposition Clinical Impression: Polyarthralgia Disposition: DC-01 TO HOME OR SELFCARE Is pt being admited?: No Does the pt Need Aspirin: No Condition: Stable Instructions: Arthralgia (ED) Additional Instructions: Return to the emergency department should you develop worsening symptoms, inability to tolerate food or liquids, high fever or any other concerns Prescriptions: Ibuprofen [Motrin 800 MG tab] 800 mg PO Q8HR PRN #20 tablet PRN Reason: Pain, Moderate (4-6) HYDROcodone/APAP 5-325 [[place] 5/325] 1 - 2 each PO Q6HR PRN #14 tablet PRN Reason: Pain Referrals: PRIMARY CARE, [Primary Care Provider] - 3-5 Days Time of Disposition: 04:28
[2019-07-08] MEDS ORDERED: ONDANSETRON 4 MG ODT TAB ONE (03:37)
[2019-07-08] MEDS ORDERED: ONDANSETRON 4 MG ODT TAB PO ONE (03:44)
[2019-07-08 04:05] LABS: Basophils # (Auto) 0.1 K/mm3 (0.0-0.1); Basophils % (Auto) 0.9 % (0.0-1.8); Eosinophils # (Auto) 0.2 K/mm3 (0.0-0.4); Eosinophils % (Auto) 1.9 % (0.0-4.3); Hematocrit 32.8 % (30.3-42.9); Hemoglobin 10.9 gm/dl (10.1-14.3); Lymphocytes # (Auto) 2.1 K/mm3 (1.2-5.4); Lymphocytes % (Auto) 25.2 % (13.4-35.0); Mean Corpuscular HGB Conc 33 % (30-34); Mean Corpuscular Volume 83 fl (79-97); Monocytes # (Auto) 0.8 K/mm3 (0.0-0.8); Monocytes % (Auto) 9.7 % (0.0-7.3); Platelet Count 604 K/mm3 (140-440); Red Blood Count 3.98 M/mm3 (3.65-5.03); Red Cell Distribution Width 17.3 % (13.2-15.2)
[2019-07-08] MEDS ORDERED: MORPHINE 4 MG/1 ML INJ IM ONE (04:05)
[2019-07-08 04:24] LABS: BUN/Creatinine Ratio 21; Blood Urea Nitrogen 15 mg/dL (7-17); Calcium 8.8 mg/dL (8.4-10.2); Hemolysis Index 0
[2019-07-08 04:48] VITALS: BP 141/92
== END 2019-07-08 04:49 | disposition home or self-care (01) ==
LOC: ED 01:40
DX: M25.50 Pain in unspecified joint (principal); E11.9 Type 2 diabetes mellitus without complications; J45.909 Unspecified asthma, uncomplicated; F17.200 Nicotine dependence, unspecified, uncomplicated; Z98.890 Other specified postprocedural states; Z79.899 Other long term (current) drug therapy
CPT/HCPCS: 36415; 80048; 84703; 85025; 96372; 99283; J1885; J2270; Q0162

== ENCOUNTER 2020-03-12 09:37 | Emergency (ER) | payer SELFPAY ==
--- NOTE | 2020-03-12 10:32 | Emergency Department Report ---
ED CPR HPI - General Chief Complaint: Cardiac Arrest/CPR Stated Complaint: CARDIAC ARREST Time Seen by Provider: 03/12/20 10:02 Source: EMS Mode of arrival: Stretcher Limitations: Other - History of Present Illness Initial Comments: This is a 39-year old female who experienced a cardiac arrest some 30-35 minutes prior to arrival in the emergency department. I am told by medics that the patient had difficulty in breathing when they arrived. They stated that they had some difficulty transporting the patient down the steps. By the time the patient reached the bottom of the stairs they stated she had stopped breathing and CPR was initiated. At the time of arrival CPR had continued for at least 30 minutes without return of spontaneous circulation. Medics did intubate the patient successfully and had given epinephrine. Upon arrival the patient was noted to be pulseless and apneic. Her rhythm showed a very rare agonal complex. Her pupils are fixed and dilated. Further resuscitative efforts were deemed to be futile. The patient was pronounced DOA. MD Complaint: stopped breathing -: minute(s), hour(s) Place: home Bystander CPR Performed: No Shock Advised: No Initial Findings in the Field: alert (Respiratory distress) ROSC in the Field: No Associated Injuries: No Associated Symptoms: shortness of breath Treatments Prior to Arrival: intubation, epinephrine mgs # - Related Data Previous Rx's Medication Instructions Recorded Last Taken Type Prednisone [predniSONE 10 mg 10 mg PO .TAPER #1 tab.ds.pk 12/26/18 Unknown Rx (6-Day Pack, 21 Tabs)] HYDROcodone/APAP 5-325 [[place] 1 each PO Q6HR PRN #10 tablet 03/31/19 Unknown Rx 5/325] predniSONE [Deltasone] 20 mg PO DAILY #15 tablet 04/25/19 Unknown Rx traMADoL [Ultram] 50 mg PO Q6HR PRN #24 tablet 04/25/19 Unknown Rx HYDROcodone/APAP 5-325 [[place] 1 - 2 each PO Q6HR PRN #14 tablet 07/08/19 Unknown Rx 5/325] Ibuprofen [Motrin 800 MG tab] 800 mg PO Q8HR PRN #20 tablet 07/08/19 Unknown Rx Allergies Allergy/AdvReac Type Severity Reaction Status Date / Time No Known Allergies Allergy Verified 12/22/18 16:16 ED Review of Systems ROS: Stated complaint: CARDIAC ARREST Other details as noted in HPI Comment: Unobtainable due to pts medical conditions ED Past Medical Hx - Past Medical History Previous Medical History?: Yes Hx Diabetes: Yes Hx Arthritis: Yes Hx Asthma: Yes Hx COPD: Yes Additional medical history: anxiety. bronchitis - Surgical History Hx Cholecystectomy: Yes Additional Surgical History: x 2 - Social History Smoking Status: Current Every Day Smoker (1/7 pack/day) Substance Use Type: None (Denies illicit drug use), Alcohol (Occasional) - Medications Home Medications: Home Medications Medication Instructions Recorded Confirmed Last Taken Type Prednisone [predniSONE 10 mg 10 mg PO .TAPER #1 tab.ds.pk 12/26/18 Unknown Rx (6-Day Pack, 21 Tabs)] HYDROcodone/APAP 5-325 [[place] 1 each PO Q6HR PRN #10 tablet 03/31/19 Unknown Rx 5/325] predniSONE [Deltasone] 20 mg PO DAILY #15 tablet 04/25/19 Unknown Rx traMADoL [Ultram] 50 mg PO Q6HR PRN #24 tablet 04/25/19 Unknown Rx HYDROcodone/APAP 5-325 [[place] 1 - 2 each PO Q6HR PRN #14 tablet 07/08/19 Unknown Rx 5/325] Ibuprofen [Motrin 800 MG tab] 800 mg PO Q8HR PRN #20 tablet 07/08/19 Unknown Rx ED Physical Exam - General Limitations: Physical Limitation (Morbid obesity) - Eye Eye exam: Present: other (Fixed and dilated) - ENT ENT exam: Present: other (Oral intubation) - Respiratory Respiratory exam: Present: normal lung sounds bilaterally (Clear breath sounds with emesis) - Cardiovascular Cardiovascular Exam: Present: other (No heart sounds) - GI/Abdominal GI/Abdominal exam: Present: soft - Extremities Exam Extremities exam: Present: other (No gross deformity) - Back Exam Back exam: Present: other (Limited view) - Neurological Exam Neurological exam: Present: other (GCS 3) - Skin Skin exam: Present: warm ED Course - Reevaluation(s) Reevaluation #1: The patient's daughter was counseled. 03/12/20 10:34 Critical care attestation.: If time is entered above; I have spent that time in minutes in the direct care of this critically ill patient, excluding procedure time. ED Disposition Clinical Impression: Cardiac arrest Disposition: DC-20 Is pt being admited?: No Does the pt Need Aspirin: No Condition: Stable Referrals: PRIMARY CARE, [Primary Care Provider] - 3-5 Days Time of Disposition: 10:35
== END 2020-03-12 10:05 ==
LOC: ED 09:37
DX: I46.9 Cardiac arrest, cause unspecified (principal); I10 Essential (primary) hypertension; E11.9 Type 2 diabetes mellitus without complications; J44.9 Chronic obstructive pulmonary disease, unspecified; F17.200 Nicotine dependence, unspecified, uncomplicated; Z79.899 Other long term (current) drug therapy
CPT/HCPCS: 92950